=== PATIENT | female | born 1975 | race Caucasian/White ===

== ENCOUNTER → 2020-05-17 | Outpatient (CLI) | payer BC ==
[2020-05-17 23:06] LABS: ESTRADIOL LEVEL 103.6 pg/mL (.); PROGESTERONE 8.7 ng/mL (.)
== END ==
LOC: LAB 16:10
PROVIDERS: ATTEND Family Medicine
DX: N94.3 Premenstrual tension syndrome (principal); N92.6 Irregular menstruation, unspecified
CPT/HCPCS: 36415; 82670; 84144

== ENCOUNTER → 2021-05-15 | Outpatient (CLI) | payer BC ==
[2021-05-15 11:22] LABS: ALBUMIN 3.5 g/dL (3.4-5.0); ALBUMIN/GLOBULIN RATIO 1.1 (1.0-1.7); CALCIUM 8.5 mg/dL (8.5-10.1); GFR 60.2; POTASSIUM 4.2 mmol/L (3.5-5.1); TOTAL BILIRUBIN 0.5 mg/dL (0.2-1.0); TOTAL PROTEIN 6.8 g/dL (6.4-8.2)
[2021-05-15 19:46] LABS: FREE T4 1.14 ng/dL (0.76-1.46); THYROID STIM HORMONE (TSH) 1.18 uIU/mL (0.358-3.740)
[2021-05-15 23:11] LABS: ESTRADIOL LEVEL 97.2 pg/mL (.); PROGESTERONE 10.2 ng/mL (.)
[2021-05-16 13:09] LABS: INSULIN LEVEL 6.7 uIU/mL (2.6-24.9)
== END ==
LOC: LAB 09:15
PROVIDERS: ATTEND Family Medicine
DX: Z13.6 Encounter for screening for cardiovascular disorders (principal); E07.9 Disorder of thyroid, unspecified; E55.9 Vitamin D deficiency, unspecified; N94.3 Premenstrual tension syndrome; N92.6 Irregular menstruation, unspecified
CPT/HCPCS: 36415; 80053; 80061; 82306; 82670; 83525; 84144; 84439; 84443; 84480; 84482

== ENCOUNTER → 2021-06-20 | Outpatient (CLI) | payer BC ==
[2021-06-20 10:39] LABS: ALBUMIN 3.7 g/dL (3.4-5.0); ALBUMIN/GLOBULIN RATIO 1.3 (1.0-1.7); CALCIUM 8.5 mg/dL (8.5-10.1); GFR 60.2; POTASSIUM 3.9 mmol/L (3.5-5.1); TOTAL BILIRUBIN 0.5 mg/dL (0.2-1.0); TOTAL PROTEIN 6.6 g/dL (6.4-8.2)
== END ==
LOC: LAB 09:38
PROVIDERS: ATTEND Family Medicine
DX: E87.6 Hypokalemia (principal)
CPT/HCPCS: 36415; 80053

== ENCOUNTER → 2021-08-29 | Outpatient (CLI) | payer BC | LOC: LAB 09:24 | PROVIDERS: ATTEND Family Medicine | DX: E55.9 Vitamin D deficiency, unspecified (principal) | CPT/HCPCS: 82306 ==